=== PATIENT | female | born 1960 | race Caucasian/White ===

== ENCOUNTER 2018-06-21 10:43 | Outpatient (CLI) | payer OTHER | END 2018-06-21 10:44 | disposition home or self-care (01) | LOC: BICMAMMO 10:43 | PROVIDERS: ATTEND Obstetrics & Gynecology | DX: Z12.31 Encounter for screening mammogram for malignant neoplasm of breast (principal); R92.1 Mammographic calcification found on diagnostic imaging of breast | CPT/HCPCS: 77063; 77067 ==

== ENCOUNTER 2019-06-23 08:39 | Outpatient (CLI) | payer OTHER ==
--- NOTE | 2019-06-23 09:44 | MMO ---
Bilateral MAMMO Bilat Screen [facility]. CLINICAL HISTORY: Patient is 58 years old and is seen for screening. The patient has no family history of breast cancer. The patient has no personal history of cancer. VIEWS: The views performed were: bilateral craniocaudal with tomosynthesis and bilateral mediolateral oblique with tomosynthesis. FILMS COMPARED: The present examination has been compared to prior imaging studies performed at [facility] on 11/08/2014, 03/13/2016, 04/06/2017 and 06/21/2018. This study has been interpreted with the assistance of computer-aided detection. MAMMOGRAM FINDINGS: There are scattered fibroglandular densities. There are stable benign appearing calcifications seen in both breasts. There are no suspicious masses, suspicious calcifications, or new areas of architectural distortion. IMPRESSION: THERE IS NO MAMMOGRAPHIC EVIDENCE OF MALIGNANCY. A ROUTINE FOLLOW-UP MAMMOGRAM IN 1 YEAR IS RECOMMENDED. THE RESULTS OF THIS EXAM WERE SENT TO THE PATIENT. ACR BI-RADS Category 2 - Benign finding MAMMOGRAPHY NOTE: 1. A negative mammogram report should not delay a biopsy if a dominant of clinically suspicious mass is present. 2. Approximately 10% to 15% of breast cancers are not detected by mammography. 3. Adenosis and dense breasts may obscure an underlying neoplasm. Reported by: VASU MEJÍA MD Electonically Signed: [id number]
== END 2019-06-23 08:40 | disposition home or self-care (01) ==
LOC: BICMAMMO 08:39
PROVIDERS: ATTEND Internal Medicine
DX: Z12.31 Encounter for screening mammogram for malignant neoplasm of breast (principal)
CPT/HCPCS: 77063; 77067

== ENCOUNTER 2019-08-08 09:45 | Outpatient (CLI) | payer OTHER ==
--- NOTE | 2019-08-08 11:59 | ULT ---
Thyroid sonogram HISTORY: Enlarged thyroid gland. FINDINGS: Right thyroid lobe measures up to 4.9 cm. Heterogeneous appearance. Multiple small solid an d cystic nodules. A partially calcified nodule at the midportion of the right thyroid lobe is 0.5 cm greatest diameter. No dominant aggressive lesions evident. Isthmus is 0.2 cm thickness. Left thyroid lobe has a heterogeneous echotexture and measures up to 4.7 cm. Multiple small solid and cystic nodules, measuring up to 0.8 cm the central portion with a small internal calcification. IMPRESSION: Multiple subcentimeter nonspecific thyroid nodules. No dominant or aggressive lesions mumtaz dent. Thyroid size upper limits of normal.
== END 2019-08-08 09:46 | disposition home or self-care (01) ==
LOC: BICULT 09:45
PROVIDERS: ATTEND Family Medicine
DX: E04.9 Nontoxic goiter, unspecified (principal); E04.2 Nontoxic multinodular goiter
CPT/HCPCS: 76536